=== PATIENT | female | born 1950 | race Caucasian/White ===

== ENCOUNTER 2022-04-12 10:13 | Day surgery (SDC) | payer MEDICARE, OTHER ==
[2022-04-12] VITALS (9 sets, daily range): BP systolic 135–155; BP diastolic 60–75
[~2022-04-12] VITALS: Ht 157.5 cm; Wt 67.2 kg
[2022-04-12] MEDS ORDERED: LORazepam 0.5 MG tablet PO PRN (10:40)
[2022-04-12] MEDS ORDERED: nitroGLYCERIN 0.4mg SUBLingual tab SL PRN ×2 (10:40→15:15)
[2022-04-12] MEDS ORDERED: diphenhydrAMINE 25mg capsule PO PRN (10:40)
[2022-04-12] MEDS ORDERED: normal saline 1,000 ML IV SCH (10:40)
[2022-04-12 11:32] LABS: BASOPHILS % (AUTO) 0.6 % (0-1); EOSINOPHILS % (AUTO) 0.5 % (0-6); HEMATOCRIT 37.4 % (35.0-45.0); HEMOGLOBIN 12.6 g/dl (12.0-16.0); LYMPHOCYTES # (AUTO) 1.8 X10'3 (1.1-4.8); MEAN CORPUSCULAR HEMOGLOBIN 30.8 PG (27.0-31.0); MEAN CORPUSCULAR HGB CONC 33.8 g/dL (33.0-36.5); MEAN CORPUSCULAR VOLUME 91.1 FL (78-98); MEAN PLATELET VOLUME 8.8 FL (7.4-10.4); MONOCYTES # (AUTO) 0.3 X10'3 (0-0.9); MONOCYTES % (AUTO) 4.9 % (2-12); NEUTROPHILS # (AUTO) 4.9 X10'3 (1.8-7.7); PLATELET COUNT 157 X10'3 (140-440); RED CELL DISTRIBUTION WIDTH 12.5 % (11.5-14.5); WHITE BLOOD COUNT 7.1 X10'3 (4.5-11.0)
[2022-04-12 11:36] LABS: APTT 25 SECONDS (22-32)
[2022-04-12] MEDS ORDERED: BUPR-297 PO (11:36)
[2022-04-12] MEDS ORDERED: NITR1PAT63 TD (11:36)
[2022-04-12] MEDS ORDERED: CITA40TA30 PO (11:36)
[2022-04-12] MEDS ORDERED: MONT-40 PO (11:36)
[2022-04-12] MEDS ORDERED: CALC-1260 PO (11:36)
[2022-04-12] MEDS ORDERED: BETA1TAB20 PO (11:36)
[2022-04-12] MEDS ORDERED: FEXO1TAB5 PO (11:36)
[2022-04-12] MEDS ORDERED: TRAZ-256 PO (11:36)
[2022-04-12] MEDS ORDERED: CHOL400T57 PO (11:36)
[2022-04-12] MEDS ORDERED: EFF37.5XRC PO (11:36)
[2022-04-12] MEDS ORDERED: UBID30CA11 PO (11:36)
[2022-04-12] MEDS ORDERED: SIMV-42 PO (11:36)
[2022-04-12] MEDS ORDERED: OMEP40CA21 PO (11:36)
[2022-04-12] MEDS ORDERED: MULT-227 PO (11:36)
[2022-04-12 11:42] LABS: ALBUMIN 3.8 G/DL (3.4-5.0); ANION GAP 5 (8-16); BLOOD UREA NITROGEN 12 MG/DL (7-18); BUN/CREATININE RATIO 10.9 (6.6-38.0); CALCIUM 9.2 MG/DL (8.5-10.1); CHLORIDE 105 MMOL/L (99-107); GLUCOSE 97 MG/DL (70-104); POTASSIUM 3.7 MMOL/L (3.5-5.1); SODIUM 143 MMOL/L (135-145); TOTAL CARBON DIOXIDE 33.1 MMOL/L (24-32); eGFR 49 ML/MIN
[2022-04-12] MEDS ORDERED: fentaNYL/PF 50MCG/1 ML 2ML syringe ONE (13:40)
[2022-04-12] MEDS ORDERED: iohexol 350MG/ML 100ml bottle IV ONE (13:41)
[2022-04-12] MEDS ORDERED: iohexol 350 MG/ML 50ML vial IV ONE (13:41)
[2022-04-12] MEDS ORDERED: LIDOcaine 1% 30ml preserv. free vial ONE (13:41)
[2022-04-12] MEDS ORDERED: midazolam 1 mg/ML 2ml injection ONE (13:41)
[2022-04-12] MEDS ORDERED: ondansetron/PF 4mg/2ml inj ONE (13:55)
[2022-04-12] MEDS ORDERED: hydrALAZINE 20mg/ml inj. IV ONE (14:28)
[2022-04-12] MEDS ORDERED: normal saline 1000ml 1,000 ML IV SCH (15:15)
[2022-04-12] MEDS ORDERED: HYDROcodone/acetaminophen 10/325mg tab PO PRN (15:15)
[2022-04-12] MEDS ORDERED: OXAZEpam 15mg capsule PO PRN (15:15)
[2022-04-12] MEDS ORDERED: ondansetron/PF 4mg/2ml inj IV PRN (15:15)
[2022-04-12] MEDS ORDERED: proCHLORperazine 10 MG/2 ml inj IV PRN (15:15)
[2022-04-12] MEDS ORDERED: HYDROcodone/acetaminophen 5mg/325mg tablet PO PRN (15:15)
== END 2022-04-12 19:45 | disposition home or self-care (01) ==
LOC: SSTAY O 10:13
PROVIDERS: ATTEND Internal Medicine Cardiovascular Disease
DX: I25.119 Atherosclerotic heart disease of native coronary artery with unspecified angina pectoris (principal); G43.909 Migraine, unspecified, not intractable, without status migrainosus; F32.9 Major depressive disorder, single episode, unspecified; F41.1 Generalized anxiety disorder; I10 Essential (primary) hypertension; K21.9 Gastro-esophageal reflux disease without esophagitis; E78.5 Hyperlipidemia, unspecified; Z79.899 Other long term (current) drug therapy; Z79.01 Long term (current) use of anticoagulants
CPT/HCPCS: 36415; 71046; 80048; 85025; 85610; 85730; 93458; 99152; C1760; C1769; J0360; J1644; J2250; J2405; J3010; J3490; J7030; Q0163; Q9967; 99153; A6258